=== PATIENT | male | born 1950 | race Caucasian/White ===

== ENCOUNTER → 2016-09-12 | Outpatient (CLI) | payer BC ==
[2016-09-12 10:20] LABS: Basophils % (A) 1 %; CH 31.9; CHCM 34.2; Eosinophils # (A) 0.3 k/uL (0-0.7); Eosinophils % (A) 5 %; HDW 2.54; HGB 14.7 gm/dL (13.0-17.5); Luc # (Auto) 0.19; Luc % (Auto) 4; Lymphocytes # (A) 1.2 k/uL (1.0-4.8); Lymphocytes % (A) 23 %; MCH 31.3 pg (25.0-35.0); MCHC 33.3 g/dL (31.0-37.0); MCV 93.8 fL (80.0-100.0); Mean Platelet Volume 7.7; Monocytes # (A) 0.5 k/uL (0-1.0); Monocytes % (A) 9 %; Neutrophils # (A) 3.1 k/uL (1.3-7.7); Neutrophils % (A) 59 %; RBC 4.69 m/uL (4.30-5.90); RDW 13.3 % (11.5-15.5); WBC 5.2 k/uL (3.8-10.6); WBC (Perox) 5.41
[2016-09-12 11:42] LABS: Calcium 9.5 mg/dL (8.4-10.2); Potassium 4.6 mmol/L (3.5-5.1); Total Bilirubin 1.2 mg/dL (0.2-1.3); Total Protein 6.9 g/dL (6.3-8.2)
[2016-09-12 12:09] LABS: Prostate Specific Antigen 2.01 ng/mL (0.00-4.00)
[2016-09-12 13:57] LABS: Hemoglobin A1C 5.8 % (4.2-6.1)
== END | disposition home or self-care (01) ==
LOC: LABWHC1 09:37
PROVIDERS: ATTEND Internal Medicine
DX: Z00.00 Encounter for general adult medical examination without abnormal findings (principal); I10 Essential (primary) hypertension; R73.01 Impaired fasting glucose; E78.2 Mixed hyperlipidemia; Z12.5 Encounter for screening for malignant neoplasm of prostate
CPT/HCPCS: 36415; 80053; 80061; 83036; 84153; 85025

== ENCOUNTER → 2019-01-19 | Outpatient (CLI) | payer BC ==
--- NOTE | 2019-01-19 10:46 | US ---
EXAMINATION TYPE: US venous doppler duplex LE RT DATE OF EXAM: 01/19/2019 10:40 AM COMPARISON: NONE CLINICAL HISTORY: M79.661Pain in right lower leg, R22.41 Swelling,. SIDE PERFORMED: TECHNIQUE: The lower extremity deep venous system is examined utilizing real time linear array sonog john with graded compression, doppler sonography and color-flow sonography. VESSELS IMAGED: External Iliac Vein (EIV) Common Femoral Vein Deep Femoral Vein Greater Saphenous Vein * Femoral Vein Popliteal Vein Small Saphenous Vein * Proximal Calf Veins (* superficial vessels) Right Leg: Negative for DVT IMPRESSION: 1. Right lower extremity ultrasound negative for deep venous thrombosis.
== END | disposition home or self-care (01) ==
LOC: RADUSWWP 10:15
PROVIDERS: ATTEND Internal Medicine
DX: I82.401 Acute embolism and thrombosis of unspecified deep veins of right lower extremity (principal); M79.661 Pain in right lower leg; R22.41 Localized swelling, mass and lump, right lower limb

== ENCOUNTER → 2020-05-26 | Outpatient (CLI) | payer BC ==
--- NOTE | 2020-05-26 14:58 | US ---
EXAMINATION TYPE: US kidneys/renal and bladder DATE OF EXAM: 05/26/2020 COMPARISON: NONE CLINICAL HISTORY: N18.4 chronic kidney disease; non diabetic EXAM MEASUREMENTS: Right Kidney: 10.3 x 5.9 x 5.9 cm Left Kidney: 11.3 x 5.4 x 5.5 cm Post Void Residual Volume: 6.3 mL Right Kidney: anechoic, thin, crescent shaped area noted extracapsular is sonographic "sweat sign" s uggestive of renal failure Left Kidney: Multiple renal cysts seen with lateral cystic cluster = 1.7 x 2.8 x 1.9cm and medial low er cortical cystic cluster = 3.4 x 3.1 x 2.8cm; anechoic, thin, crescent shaped area noted extracapsu lar is sonographic "sweat sign" suggestive of renal failure Bladder: wnl Bilateral Jets seen: yes Normal Post Void Residual: yes IMPRESSION: 1. Small amount of fluid adjacent to the kidney suggestive for renal failure. 2. Renal cysts left kidney
== END | disposition home or self-care (01) ==
LOC: RADUSWWP 13:15
PROVIDERS: ATTEND Internal Medicine
DX: N28.1 Cyst of kidney, acquired (principal)
CPT/HCPCS: 76770

== ENCOUNTER 2022-06-01 09:50 | Emergency (ER) | payer BC, MEDICARE ==
[2022-06-01 09:57] VITALS: RESP 18
--- NOTE | 2022-06-01 10:22 | ED ---
Skin/Abscess/FB HPI - General Chief complaint: Skin/Abscess/Foreign Body Stated complaint: poss cellulitis lt hand Time Seen by Provider: 06/01/22 10:04 Source: patient, RN notes reviewed Mode of arrival: ambulatory Limitations: no limitations - History of Present Illness Initial comments: Patient is a 72-year-old male presenting to the emergency room with complaints of sores to his first and second digits on his left hand that have been ongoing for approximately 1 month due to biting of his nails and fingertips along with blistering from yard work. He reports that approximately 2 days ago the fingertips became swollen and red and he began having purulent drainage from his index finger. This morning his coworker noticed a red streak coming from his index finger into his upper forearm. He reports that he went to urgent care earlier today who advised him to present to the emergency room. He denies any occluding any chest pain, shortness of breath, nausea, vomiting, headache, dizziness, fevers or chills. He denies any past medical history and does not take any medications on a regular basis. - Related Data Home Medications Medication Instructions Recorded Confirmed amLODIPine BESYLATE/BENAZEPRIL 1 cap PO DAILY 06/01/22 06/01/22 [Lotrel 5-10 mg Capsule] Previous Rx's Medication Instructions Recorded clindamycin HCL [Cleocin] 300 mg PO Q6HR 10 Days #40 cap 06/01/22 Allergies Allergy/AdvReac Type Severity Reaction Status Date / Time shellfish derived [Shellfish] Allergy Rash/Hives Verified 06/01/22 11:32 Review of Systems ROS Statement: Those systems with pertinent positive or pertinent negative responses have been documented in the HPI. ROS Other: All systems not noted in ROS Statement are negative. Past Medical History Past Medical History: No Reported History History of Any Multi-Drug Resistant Organisms: None Reported Past Surgical History: No Surgical Hx Reported Past Psychological History: No Psychological Hx Reported Smoking Status: Never smoker Past Alcohol Use History: None Reported Past Drug Use History: None Reported General Exam Limitations: no limitations General appearance: alert, in no apparent distress Head exam: Present: atraumatic, normocephalic, normal inspection Eye exam: Present: normal appearance, PERRL, EOMI. Absent: scleral icterus, conjunctival injection, periorbital swelling ENT exam: Present: normal exam, mucous membranes moist Neck exam: Present: normal inspection, full ROM Respiratory exam: Present: normal lung sounds bilaterally. Absent: respiratory distress, wheezes, rales, rhonchi, stridor Cardiovascular Exam: Present: regular rate, normal rhythm, normal heart sounds. Absent: systolic murmur, diastolic murmur, rubs, gallop, clicks GI/Abdominal exam: Present: soft. Absent: distended, tenderness Left Forearm Wrist exam: Present: swelling, erythema. Absent: tenderness over anatomical snuff box, pain with axial thumb loading Hand Wrist exam: Present: swelling, erythema, other (Multiple calluses with blister formation to index and middle finger of left hand with open blister to palmar aspect with small opening) Back exam: Present: normal inspection Neurological exam: Present: alert, oriented X3, CN II-XII intact Psychiatric exam: Present: normal affect, normal mood Skin exam: Present: other (as above) Course Vital Signs 06/01/22 06/01/22 09:53 12:20 Temperature 98 F 98.3 F Pulse Rate 78 72 Respiratory 18 18 Rate Blood Pressure 173/74 168/72 O2 Sat by Pulse 99 98 Oximetry Medical Decision Making - Medical Decision Making Was pt. sent in by a medical professional or institution (, PA, PLATE WORKER HELPER, urgent care, hospital, or correction...) When possible be specific @ -No Did you speak to anyone other than the patient for history (EMS, parent, family, police, friend...)? What history was obtained from this source @ -No Did you review nursing and triage notes (agree or disagree)? Why? @ -I reviewed and agree with nursing and triage notes except lesions to fingers have been present for approximately one month and swelling has been approximately 2 days Were old charts reviewed (outside hosp., previous admission, EMS record, old EKG, old radiological studies, urgent care reports/EKG's, correction records)? Report findings @ -No old charts were reviewed Differential Diagnosis (chest pain, altered mental status, abdominal pain women, abdominal pain men, vaginal bleeding, weakness, fever, dyspnea, syncope, headache, dizziness, GI bleed, back pain, seizure, CVA, palpatations, mental he alth, musculoskeletal)? @ -Differential Red Swollen hand: MRSA infection, cellulitis, and osteomyelitis, this is not meant to be an all- inclusive list. EKG interpreted by me (3pts min.). @ -None done X-rays interpreted by me (1pt min.). @ -X-ray left hand: CT interpreted by me (1pt min.). @ -None done U/S interpreted by me (1pt. min.). @ -None done What testing was considered but not performed or refused? (CT, X-rays, U/S, labs)? Why? @ -None What meds were considered but not given or refused? Why? @ -None Did you discuss the management of the patient with other professionals (professionals i.e. , PA, PLATE WORKER HELPER, lab, RT, psych nurse, social welfare research worker, certified appliance service technician, teacher, division officer weapons department, therapeutic case manager)? Give summary @ -No Was smoking cessation discussed for >3mins.? @ -No Was critical care preformed (if so, how long)? @ -No Were there social determinants of health that impacted care today? How? (Ho melessness, low income, unemployed, alcoholism, drug addiction, transportation, low edu. Level, literacy, decrease access to med. care, [facility], rehab)? @ -No Was there de-escalation of care discussed even if they declined (Discuss DNR or withdrawal of care, Hospice)? DNR status @ -No What co-morbidities impacted this encounter? (DM, HTN, Smoking, COPD, CAD, Cancer, CVA, ARF, Chemo, Hep., AIDS, mental health diagnosis, sleep apnea, morbid obesity)? @ -None Was patient admitted / discharged? Hospital course, mention meds given and route, prescriptions, significant lab abnormalities, going to OR and other pertinent info. @ -72-year-old male swelling and redness streaking from his index and second digit into his hand and up his forearm with blister and callus-like lesions to his index and middle finger. High concern for osteomyelitis in the setting of prolonged blisters will obtain x-ray of the left hand in addition to laboratory studies of CBC, CMP, blood cultures and lactic acid. CBC shows RBC low 4.23 no other abnormalities; WBC 9.3 with normal differential. CMP redemonstrates CK D stage III creatinine 1.73 BUN 32 carbon dioxide low at 21 ch loride potassium sodium and anion gap all normal bilirubin elevated 1.5 with normal a LC AST. Alkaline phosphatase slightly elevated at 129. Lactic acid normal 0.8. X-ray left hand demonstrates joint space narrowing without fracture, dislocation or obvious osseous destruction indicating osteomyelitis. Vital signs continued to remain stable. No indication for further diagnostic imaging or laboratory studies. Will give 1 dose of IV antibiotics now and discharge on oral antibiotic therapy. Cellulitis/phlebitis Strake marked for patient for monitoring Wound care discussed and encouraged keeping wounds clean and dry. Advised follow-up with primary care provider. Questions and concerns answered. S trict return parameters to the emergency room discussed. Will discharge home in stable condition on oral antibiotic therapy along with localized wound care for cellulitis of the left hand and phlebitis; advise follow-up with primary care provider. Undiagnosed new problem with uncertain prognosis? @ -No Drug Therapy requiring intensive monitoring for toxicity (Heparin, Nitro, Insulin, Cardizem)? @ -No Were any procedures done? @ -No Diagnosis/symptom? @ -Cellulitis left hand Acute, or Chronic, or Acute on Chronic? @ -Acute Uncomplicated (without systemic symptoms) or Complicated (systemic symptoms)? @ -Uncomplicated Side effects of treatment? @ -No Exacerbation, Progression, or Severe Exacerbation? @ -No Poses a threat to life or bodily function? How? (Chest pain, [place], [place], pneumonia, PE, COPD, DKA, ARF, appy, cholecystitis, CVA, Diverticulitis, Homicidal, Suicidal, threat to staff... and all critical care pts) @ -No Diagnosis/symptom? @ -Phlebitis left forearm Acute, or Chronic, or Acute on Chronic? @ -Acute Uncomplicated (without systemic symptoms) or Complicated (systemic symptoms)? @ -Uncomplicated Side effects of treatment? @ -none Exacerbation, Progression, or Severe Exacerbation] @ -no Poses a threat to life or bodily function? @ -no. Case discussed with Dr. Miller. - Lab Data Result diagrams: 06/01/22 10:11 06/01/22 10:11 Lab Results 06/01/22 06/01/22 06/01/22 Range/Units 09:50 10:11 10:11 WBC 9.3 (3.8-10.6) k/uL RBC 4.23 L (4.30-5.90) m/uL Hgb 13.3 (13.0-17.5) gm/dL Hct 39.2 (39.0-53.0) % MCV 92.8 (80.0-100.0) fL MCH 31.5 (25.0-35.0) pg MCHC 33.9 (31.0-37.0) g/dL RDW 12.6 (11.5-15.5) % Plt Count 211 (150-450) k/uL MPV 7.3 Neutrophils % 73 % Lymphocytes % 16 % Monocytes % 7 % Eosinophils % 3 % Basophils % 0 % Neutrophils # 6.8 (1.3-7.7) k/uL Lymphocytes # 1.5 (1.0-4.8) k/uL Monocytes # 0.6 (0-1.0) k/uL Eosinophils # 0.3 (0-0.7) k/uL Basophils # 0.0 (0-0.2) k/uL Sodium 140 (137-145) mmol/L Potassium 4.7 (3.5-5.1) mmol/L Chloride 107 (98-107) mmol/L Carbon Dioxide 21 L (22-30) mmol/L Anion Gap 12 mmol/L BUN 32 H (9-20) mg/dL Creatinine 1.73 H (0.66-1.25) mg/dL Est GFR (CKD-EPI)AfAm 45 (>60 ml/min/1.73 sqM) Est GFR (CKD-EPI)NonAf 39 (>60 ml/min/1.73 sqM) Glucose 135 H (74-99) mg/dL Plasma Lactic Acid Reddy 0.8 (0.7-2.0) mmol/L Calcium 9.2 (8.4-10.2) mg/dL Total Bilirubin 1.5 H (0.2-1.3) mg/dL AST 26 (17-59) U/L ALT 21 (4-49) U/L Alkaline Phosphatase 129 H (38-126) U/L Total Protein 7.4 (6.3-8.2) g/dL Albumin 4.1 (3.5-5.0) g/dL Disposition Clinical Impression: Cellulitis, Phlebitis of arm Disposition: HOME SELF-CARE Condition: Stable Instructions (If sedation given, give patient instructions): Cellulitis (ED), Phlebitis (ED) Additional Instructions: Keep hand wounds clean and dry. Complete course of antibiotic as prescribed. Utilize Tylenol as needed [id number] for pain or fevers. Please follow-up with your primary care provider. Please return to the Emergency Department if symptoms worsen or any other concerns. Prescriptions: clindamycin HCL [Cleocin] 300 mg PO Q6HR 10 Days #40 cap Is patient prescribed a controlled substance at d/c from ED?: No Referrals: Isaiah Luna MD [Primary Care Provider] - 1-2 days Time of Disposition: 11:34
[2022-06-01 10:24] LABS: Basophils % (A) 0 %; Eosinophils # (A) 0.3 k/uL (0-0.7); Eosinophils % (A) 3 %; HCT 39.2 % (39.0-53.0); HGB 13.3 gm/dL (13.0-17.5); Lymphocytes # (A) 1.5 k/uL (1.0-4.8); Lymphocytes % (A) 16 %; MCH 31.5 pg (25.0-35.0); MCHC 33.9 g/dL (31.0-37.0); MCV 92.8 fL (80.0-100.0); Mean Platelet Volume 7.3; Monocytes # (A) 0.6 k/uL (0-1.0); Monocytes % (A) 7 %; Neutrophils # (A) 6.8 k/uL (1.3-7.7); Neutrophils % (A) 73 %; Platelet Count 211 k/uL (150-450); RBC 4.23 m/uL (4.30-5.90); RDW 12.6 % (11.5-15.5); WBC 9.3 k/uL (3.8-10.6)
--- NOTE | 2022-06-01 10:26 | XR ---
EXAMINATION TYPE: XR hand complete LT DATE OF EXAM: 06/01/2022 CLINICAL HISTORY: Swelling. TECHNIQUE: Frontal, lateral and oblique images of the left hand are obtained. COMPARISON: None. FINDINGS: Evaluation is suboptimal due to incomplete extension of the phalanges. There is no acute fr acture/dislocation evident in the left hand. [id number] narrowing and spurring throughout the P IP and DIP joints of the phalanges. Relative sparing of the MCP joints. Moderate to severe narrowing and spurring at the base of the first metacarpal. Mild to moderate diffuse soft tissue swelling great est involving the second finger. No obvious suspicious bony destruction. IMPRESSION: As above.
[2022-06-01 10:36] LABS: Albumin 4.1 g/dL (3.5-5.0); Calcium 9.2 mg/dL (8.4-10.2); Potassium 4.7 mmol/L (3.5-5.1); Total Bilirubin 1.5 mg/dL (0.2-1.3); Total Protein 7.4 g/dL (6.3-8.2)
[2022-06-01] MEDS ORDERED: CLINDAMYCIN 150 MG/ML 4 ML VIAL IM STA (11:27)
[2022-06-01] MEDS ORDERED: CLINDAMYCIN 600 MG in DEXTROSE 5% IN WATER 50 ML IVPB STA ×2 (11:38)
[2022-06-01 12:24] VITALS: BP 168/72; PULSE 72; TEMP 98.3
== END 2022-06-01 12:20 | disposition home or self-care (01) ==
LOC: EC 09:50
DX: I80.8 Phlebitis and thrombophlebitis of other sites (principal)
CPT/HCPCS: 36415; 80053; 83605; 85025; 96365; 99283

== ENCOUNTER → 2023-03-19 | Outpatient (CLI) | payer BC ==
--- NOTE | 2023-03-19 16:50 | US ---
EXAMINATION TYPE: US venous doppler duplex LE DATE OF EXAM: 03/19/2023 4:22 PM COMPARISON: Prev right leg onlyh CLINICAL INDICATION: Male, 72 years old with history of R60.0 LOCALIZED EDEMA BLE; Leg swelling and r edness, more on right leg SIDE PERFORMED: Bilateral TECHNIQUE: The lower extremity deep venous system is examined utilizing real time linear array sonog john with graded compression, doppler sonography and color-flow sonography. 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 Mcdowell at time of exam IMPRESSION: Grayscale, color doppler, spectral doppler imaging performed of the deep veins of the lo wer extremities. There is normal flow, compressibility, vascular waveforms.
== END | disposition home or self-care (01) ==
LOC: RADUSWWP 15:57
PROVIDERS: ATTEND Internal Medicine
DX: R60.0 Localized edema (principal); M79.89 Other specified soft tissue disorders
CPT/HCPCS: 93970

== ENCOUNTER 2023-10-17 09:21 | Inpatient (IN) | payer BC, MEDICARE ==
--- NOTE | 2023-10-17 10:36 | ED ---
General Adult HPI - General Chief complaint: Recheck/Abnormal Lab/Rx Stated complaint: high potassium levels Time Seen by Provider: 10/17/23 09:40 Source: patient Mode of arrival: ambulatory Limitations: no limitations - History of Present Illness Initial comments: 73 [id number] presents the emergency department with complaint of abnormal labs from primary care visit yesterday, reports some mild muscle cramping to right upper thigh, denies other symptoms. Patient states that he believes it was his potassium. Patient denies any chest pain shortness of breath any palpitations denies any headache or dizziness no recent nausea vomiting - Related Data Home Medications Medication Instructions Recorded Confirmed amLODIPine BESYLATE/BENAZEPRIL 1 cap PO DAILY 06/01/22 06/01/22 [Lotrel 5-10 mg Capsule] Previous Rx's Medication Instructions Recorded clindamycin HCL [Cleocin] 300 mg PO Q6HR 10 Days #40 cap 06/01/22 Allergies Allergy/AdvReac Type Severity Reaction Status Date / Time shellfish derived [Shellfish] Allergy Rash/Hives Verified 10/17/23 11:45 Review of Systems ROS Statement: Those systems with pertinent positive or pertinent negative responses have been documented in the HPI. ROS Other: All systems not noted in ROS Statement are negative. Musculoskeletal: Reports: myalgia (Right upper thigh), other Past Medical History Past Medical History: Hypertension History of Any Multi-Drug Resistant Organisms: None Reported Past Surgical History: No Surgical Hx Reported Past Psychological History: No Psychological Hx Reported Smoking Status: Never smoker Past Alcohol Use History: None Reported Past Drug Use History: None Reported General Exam Limitations: no limitations General appearance: alert, in no apparent distress Head exam: Present: atraumatic, normocephalic, normal inspection Eye exam: Present: normal appearance, PERRL, EOMI. Absent: scleral icterus, conjunctival injection, periorbital swelling ENT exam: Present: normal exam, mucous membranes moist Neck exam: Present: normal inspection. Absent: tenderness, meningismus, lymphadenopathy Respiratory exam: Present: normal lung sounds bilaterally. Absent: respiratory distress, wheezes, rales, rhonchi, stridor Cardiovascular Exam: Present: regular rate, normal rhythm, normal heart sounds. Absent: systolic murmur, diastolic murmur, rubs, gallop, clicks GI/Abdominal exam: Present: soft, normal bowel sounds. Absent: distended, te nderness, guarding, rebound, rigid Extremities exam: Present: normal inspection, full ROM, normal capillary refill. Absent: tenderness, pedal edema, joint swelling, calf tenderness Back exam: Present: normal inspection Neurological exam: Present: alert, oriented X3, CN II-XII intact Psychiatric exam: Present: normal affect, normal mood Skin exam: Present: warm, dry, intact, normal color. Absent: rash Course Vital Signs 10/17/23 10/17/23 09:43 10:06 Temperature 99.1 F Pulse Rate 98 Pulse Rate [ 88 Radial] Respiratory 16 Rate Blood Pressure 146/68 O2 Sat by Pulse 99 Oximetry EKG Findings - EKG Comments: EKG Findings:: EKG performed at 11: 26 sinus rhythm rate of 71 IA 171 QRS 96 QT/QTc 356/[address] elevation depression noted. - EKG Results: EKG: interpreted by JEANINE Medical Decision Making - Medical Decision Making Was pt. sent in by a medical professional or institution (, PA, HUMAN CAPITAL MANAGER, urgent care, hospital, or half-way...) When possible be specific @ -No Did you speak to anyone other than the patient for history (EMS, parent, family, police, friend...)? What history was obtained from this source @ -No Did you review nursing and triage notes (agree or disagree)? Why? @ -I reviewed and agree with nursing and triage notes Were old charts reviewed (outside hosp., previous admission, EMS record, old EKG, old radiological studies, urgent care reports/EKG's, half-way records)? Report findings @ -No old charts were reviewed Differential Diagnosis (chest pain, altered mental status, abdominal pain women, abdominal pain men, vaginal bleeding, weakness, fever, dyspnea, syncope, headache, dizziness, GI bleed, back pain, seizure, CVA, palpatations, mental health, musculoskeletal)? @ -Hyperkalemia, dehydration, acute renal failure, hypomagnesemia EKG interpreted by me (3pts min.). @ -As above X-rays interpreted by me (1pt min.). @ -None done CT interpreted by me (1pt min.). @ -None done U/S interpreted by me (1pt. min.). @ -None done What testing was considered but not performed or refused? (CT, X-rays, U/S, labs)? Why? @ -None What meds were considered but not given or refused? Why? @ -None Did you discuss the management of the patient with other professionals (professionals i.e. , PA, HUMAN CAPITAL MANAGER, lab, RT, psych nurse, social work professor, legal assistant, teacher, head correction officer, social work case manager)? Give summary @ -Sound physician for admission Was smoking cessation discussed for >3mins.? @ -No Was critical care preformed (if so, how long)? @ -35 minutes of critical care Were there social determinants of health that impacted care today? How? (Homelessness, low income, unemployed, alcoholism, drug addiction, transpor tation, low edu. Level, literacy, decrease access to med. care, detention, rehab)? @ -No Was there de-escalation of care discussed even if they declined (Discuss DNR or withdrawal of care, Hospice)? DNR status @ -No What co-morbidities impacted this encounter? (DM, HTN, Smoking, COPD, CAD, Cancer, CVA, ARF, Chemo, Hep., AIDS, mental health diagnosis, sleep apnea, morbid obesity)? @ -Chronic failure Was patient admitted / discharged? Hospital course, mention meds given and route, prescriptions, significant lab abnormalities, going to OR and other pertinent info. @ -Admitted patient is found to have potassium of 7.3, patient's potassium was 7.7 yesterday. Patient was ordered calcium gluconate, bicarb, Lokelma, insulin and dextrose. Patient will have repeat laboratory studies. Patient does have acute on chronic renal failure. Patient will be admitted for repeat labs and observation. Undiagnosed new problem with uncertain prognosis? @ -No Drug Therapy requiring intensive monitoring for toxicity (Heparin, Nitro, Insulin, Cardizem)? @ -No Were any procedures done? @ -No Diagnosis/symptom? @ -[Acute chronic renal failure, hyperkalemia Acute, or Chronic, or Acute on Chronic? @ -Acute Uncomplicated (without systemic symptoms) or Complicated (systemic symptoms)? @ -Complicated Side effects of treatment? @ -No Exacerbation, Progression, or Severe Exacerbation? @ -No Poses a threat to life or bodily function? How? (Chest pain, [place], [place], pneumonia, PE, COPD, DKA, ARF, appy, cholecystitis, CVA, Diverticulitis, Homicidal, Suicidal, threat to staff... and all critical care pts) @ -Yes cardiac dysrhythmia leading to cardiac arrest - Lab Data Result diagrams: 10/17/23 10:50 10/17/23 10:50 Lab Results 10/17/23 10/17/23 Range/Units 10:50 10:50 WBC 6.7 (3.8-10.6) k/uL RBC 4.05 L (4.30-5.90) m/uL Hgb 13.0 (13.0-17.5) gm/dL Hct 40.0 (39.0-53.0) % MCV 98.9 (80.0-100.0) fL MCH 32.2 (25.0-35.0) pg MCHC 32.5 (31.0-37.0) g/dL RDW 13.2 (11.5-15.5) % Plt Count 256 (150-450) k/uL MPV 7.4 Neutrophils % 67 % Lymphocytes % 19 % Monocytes % 7 % Eosinophils % 4 % Basophils % 0 % Neutrophils # 4.5 (1.3-7.7) k/uL Lymphocytes # 1.3 (1.0-4.8) k/uL Monocytes # 0.5 (0-1.0) k/uL Eosinophils # 0.3 (0-0.7) k/uL Basophils # 0.0 (0-0.2) k/uL Sodium 135 L (137-145) mmol/L Potassium 7.3 H* (3.5-5.1) mmol/L Chloride 111 H (98-107) mmol/L Carbon Dioxide 15 L (22-30) mmol/L Anion Gap 9 mmol/L BUN 50 H (9-20) mg/dL Creatinine 2.96 H (0.66-1.25) mg/dL Est GFR (CKD-EPI)AfAm 23 (>60 ml/min/1.73 sqM) Est GFR (CKD-EPI)NonAf 20 (>60 ml/min/1.73 sqM) Glucose 103 H (74-99) mg/dL Calcium 9.8 (8.4-10.2) mg/dL Magnesium 1.7 (1.6-2.3) mg/dL Total Bilirubin 0.8 (0.2-1.3) mg/dL AST 27 (17-59) U/L ALT 21 (4-49) U/L Alkaline Phosphatase 110 (38-126) U/L Total Protein 7.7 (6.3-8.2) g/dL Albumin 4.4 (3.5-5.0) g/dL Critical Care Time Critical Care Time: Yes Total Critical Care Time: 35 Disposition Clinical Impression: Acute kidney injury, Hyperkalemia Disposition: [facility] Condition: Poor Referrals: Isaiah Luna DO [Primary Care Provider] - 1-2 days Time of Disposition: 11:48
[2023-10-17 11:01] LABS: Basophils % (A) 0 %; Eosinophils # (A) 0.3 k/uL (0-0.7); Eosinophils % (A) 4 %; Lymphocytes # (A) 1.3 k/uL (1.0-4.8); Lymphocytes % (A) 19 %; MCH 32.2 pg (25.0-35.0); MCHC 32.5 g/dL (31.0-37.0); MCV 98.9 fL (80.0-100.0); Mean Platelet Volume 7.4; Monocytes # (A) 0.5 k/uL (0-1.0); Monocytes % (A) 7 %; Neutrophils # (A) 4.5 k/uL (1.3-7.7); Neutrophils % (A) 67 %; Platelet Count 256 k/uL (150-450); RBC 4.05 m/uL (4.30-5.90); RDW 13.2 % (11.5-15.5); WBC 6.7 k/uL (3.8-10.6)
[2023-10-17 11:18] LABS: ALT 21 U/L (4-49); AST 27 U/L (17-59); African American GFR (CKD) 23 (>60 ml/min/1.73 sqM); Albumin 4.4 g/dL (3.5-5.0); Alkaline Phosphatase 110 U/L (38-126); Anion Gap 9 mmol/L; Blood Urea Nitrogen 50 mg/dL (9-20); Calcium 9.8 mg/dL (8.4-10.2); Carbon Dioxide 15 mmol/L (22-30); Chloride 111 mmol/L (98-107); Glucose 103 mg/dL (74-99); Magnesium 1.7 mg/dL (1.6-2.3); Non-African American GFR(CKD) 20 (>60 ml/min/1.73 sqM); Sodium 135 mmol/L (137-145); Total Bilirubin 0.8 mg/dL (0.2-1.3); Total Protein 7.7 g/dL (6.3-8.2)
[2023-10-17 11:32] LABS: Potassium 7.3 mmol/L (3.5-5.1)
[2023-10-17] MEDS: CALCIUM GLUCONATE IN NACL 1 GM in SALINE 1 100ML.BAG IVPB ONE ×2 (11:52→17:19)
[2023-10-17] MEDS: SODIUM CHLORIDE 0.9% 1,000 ML IV ONE (11:52)
[2023-10-17] MEDS: DEXTROSE 50% SYRINGE 50 ML IVP ONE ×2 (11:54→17:21)
[2023-10-17] MEDS: SODIUM BICARB 8.4% 50 ML SYR (1 MEQ/ML) IV ONE (11:54)
[2023-10-17] MEDS ORDERED: NALOXONE 0.4 MG/ML 1 ML VIAL IV PRN (11:54)
[2023-10-17] MEDS ORDERED: ACETAMINOPHEN TAB 325 MG TAB PO PRN (11:54)
[2023-10-17] MEDS: SODIUM ZIRCONIUM CYCLOSILICATE 10 GM PACKET PO ONE (11:55)
[2023-10-17] MEDS: INSULIN REGULAR 100 UNIT/ML VIAL (IV) IV ONE ×2 (12:00→17:34)
--- NOTE | 2023-10-17 12:19 | P.HPIM ---
History of Present Illness H&P Date: 10/17/23 History of Presenting Illness: Patient is a very pleasant 73-year-old male with a past medical history of hypertension and CKD stage IIIb. He presented to the emergency department as directed by his PCP for reports of hyperkalemia. Patient reports he was evaluated by his primary care physician for reports of leg muscle cramping in his right upper thigh and continued treatment of osteomyelitis of left hand middle finger, patient reports he completed antibiotic clindamycin and was started on oral antibiotic with Bactrim and had some routine lab work completed. Patient reports he received a call yesterday evening that he needed to come to the emergency department because his potassium was 7.7. Patient denies having any complaints including headache, lightheadedness, dizziness, chest pain, palpitations, shortness of breath, abdominal pain, nausea, vomiting, flank pain, changes in or difficulties with urinary function, or experiencing any swelling in his lower extremities. Patient states he has been told his kidney function was not good in the past, but denies ever being evaluated by a blending supervisor. Patient states he does not understand why his potassium is so high because he feels fine. Upon arrival to our facility, patient underwent evaluation in the emergency department. Vital signs upon arrival show blood pressure 146/68, heart rate 98, respiratory rate 16, temp 99.1 F, and SpO2 of 99% on room air. The revealing normal sinus rhythm at 71 bpm with mildly peaked T waves upon personal review and interpretation. Labs were completed and reviewed. CBC unremarkable. BMP showing potassium 7.3, chloride 111, bicarb 15, anion gap 9, BUN 50, creatinine 2.96, and GFR of 20 (with baseline creatinine of 1.8) blood glucose 103. Magnesium 1.7. Liver profile unremarkable. Patient received hyperkalemia cocktail in the emergency department and admitted under our services with consultation to nephrology. Review of systems: Pertinent positives and negatives as discussed in HPI, a complete review of systems was performed and all other systems are negative. Physical exam: Vital signs reviewed and stable. General: Nontoxic, no distress and appears stated age. Derm: Skin warm and dry, normal coloration for ethnicity. Head: Atraumatic, normocephalic and symmetric. Eyes: EOM's intact, no lid lag, and anicteric sclera Mouth: no lip lesions, mucus membranes moist Cardiovascular: regular rate and rhythm with normal S1S2, no murmur, positive posterior tibial pulses bilaterally, and cap refill < 2 seconds. Lungs: Respirations even, regular, and unlabored on room air. Lungs CTA bilaterally, no rhonchi, no rales, no wheezing, and no accessory muscle usage. Abdominal: soft, nontender to palpation, no guarding, no appreciable organo megaly Ext: ROM intact. No gross muscle atrophy, 1+ lower extremity edema, no contractures Neuro: Speech clear, face symmetrical and CN II-XII grossly intact with no noted focal neuro deficits Psych: Alert and oriented to person, place, time, and situation. Appropriate and pleasant affect. Assessment and Plan of Care: Hyperkalemia Acute kidney injury on CKD stage IIIb Anion gap metabolic acidosis -Patient received hyperkalemia cocktail in the emergency department consisting of IV fluid bolus, Lokelma, sodium bicarb, regular insulin with dextrose, and calcium gluconate. -EKG showing normal sinus rhythm at 71 bpm with mildly peaked T waves upon personal review and interpretation. -Hold nephrotoxic medications including Bactrim, Lasix, and Lotrel. -Consult placed to nephrology and discussed case with blending supervisor Dr. Holman. -Patient placed on continuous telemetry monitoring. -Continue gentle IV fluid hydration with 0.9% normal saline. -Repeat potassium to be drawn at 3 PM and further orders pending these results. -Order placed for stat renal ultrasound and urinalysis. -Patient placed on strict I's and O's. Hypertension -Hold Lotrel secondary to hyperkalemia and acute kidney injury and patient to continue with carvedilol 20 mg daily amlodipine 5 mg daily. Currently blood pressure stable 146/68. Previously diagnosed osteomyelitis of left hand middle finger -Patient reports completing course of clindamycin and recently started on Bactrim by PCP. -We will discontinue Bactrim at this time secondary to VIKA and hyperkalemia and place patient on doxycycline. Will consult infectious disease for further managemen/ recommendations of antibiotics. Data and imaging reviewed: As stated above in HPI The patient is admitted with an anticipated greater than 2 midnight stay for evaluation of hyperkalemia and acute kidney injury on chronic kidney disease. CODE STATUS: Full code DVT prophylaxis: Heparin Anticipated discharge date: Pending clinical course Anticipated discharge place: Home Patient was seen independently by Nurse Practitioner. This document was prepared using Dragon dictation software. Please allow for errors in eggs inspector while rare they do occur. . Bayron Cox NP rendered care for this patient independently, reviewed the findings and plan as documented in the note above. I did not physically speak with or examine the patient on this date. Past Medical History Past Medical History: Hypertension History of Any Multi-Drug Resistant Organisms: None Reported Past Surgical History: No Surgical Hx Reported Past Psychological History: No Psychological Hx Reported Smoking Status: Never smoker Past Alcohol Use History: None Reported Past Drug Use History: None Reported Medications and Allergies Home Medications Medication Instructions Recorded Confirmed Type amLODIPine BESYLATE/BENAZEPRIL 1 cap PO DAILY 06/01/22 10/17/23 History [Lotrel 5-10 mg Capsule] ALPRAZolam [Xanax] 0.25 mg PO DAILY PRN 10/17/23 10/17/23 History Baclofen 10 mg PO TID PRN 10/17/23 10/17/23 History Escitalopram [Lexapro] 10 mg PO DAILY 10/17/23 10/17/23 History Furosemide [Lasix] 20 mg PO DAILY 10/17/23 10/17/23 History Mupirocin 2% Oint [Bactroban 2% 1 applic TOPICAL TID 10/17/23 10/17/23 History Oint] Ondansetron [Zofran] 4 mg PO Q8HR PRN 10/17/23 10/17/23 History Sulfamethox-Tmp 800-160Mg [Bactrim 1 tab PO Q12HR 10/17/23 10/17/23 History DS 800-160 mg] allopurinoL [Zyloprim] 100 mg PO DAILY 10/17/23 10/17/23 History carvediloL phosphate [carvediloL 20 mg PO DAILY 10/17/23 10/17/23 History phosphate ER] cloNIDine HCL [Catapres] 0.1 mg PO DAILY PRN 10/17/23 10/17/23 History traZODone HCL [Desyrel] 50 mg PO HS 10/17/23 10/17/23 History Allergies Allergy/AdvReac Type Severity Reaction Status Date / Time shellfish derived [Shellfish] Allergy Rash/Hives Verified 10/17/23 11:45 Physical Exam Vitals: Vital Signs Temp Pulse Pulse Resp BP Pulse Ox 10/17/23 10:06 88 10/17/23 09:43 99.1 F 98 16 146/68 99 Intake and Output 10/16/23 10/17/23 10/17/23 22:59 06:59 14:59 Other: Weight 109.769 kg Results CBC & Chem 7: 10/17/23 10:50 10/17/23 10:50 Labs: Abnormal Lab Results - Last 24 Hours (Table) 10/17/23 10/17/23 Range/Units 10:50 10:50 RBC 4.05 L (4.30-5.90) m/uL Sodium 135 L (137-145) mmol/L Potassium 7.3 H* (3.5-5.1) mmol/L Chloride 111 H (98-107) mmol/L Carbon Dioxide 15 L (22-30) mmol/L BUN 50 H (9-20) mg/dL Creatinine 2.96 H (0.66-1.25) mg/dL Glucose 103 H (74-99) mg/dL
[2023-10-17] MEDS: DOXYCYCLINE 100 MG CAP PO SCH (13:39)
[2023-10-17] MEDS: SODIUM CHLORIDE 0.9% 1,000 ML IV SCH (13:40)
--- NOTE | 2023-10-17 14:18 | P.NPCON ---
History of Present Illness - Reason for Consult acute renal failure - History of Present Illness Patient is a 73-year-old male with history of hypertension was admitted to the hospital due to abnormal labs. Labs done as outpatient showed serum potassium at 8. Patient admits to chronic lower extremity swelling. Patient is maintained on RANJIT inhibitor's for hypertension. History of recent left middle finger cellulitis for which patient has been on Bactrim and clindamycin. No history of use of NSAIDs either. Patient denies any urinary symptoms. Blood pressure is not low. Patient does have history of chronic kidney disease but does not follow with nephrology. Baseline creatinine appears to be around 1.8-1.7 mg/dL for most of 2022 and it was 2.0 on 04/02/2023 Review of Systems as per HPI Past Medical History Past Medical History: Hypertension History of Any Multi-Drug Resistant Organisms: None Reported Past Surgical History: No Surgical Hx Reported Past Psychological History: No Psychological Hx Reported Smoking Status: Never smoker Past Alcohol Use History: None Reported Past Drug Use History: None Reported Medications and Allergies Home Medications Medication Instructions Recorded Confirmed Type amLODIPine BESYLATE/BENAZEPRIL 1 cap PO DAILY 06/01/22 10/17/23 History [Lotrel 5-10 mg Capsule] ALPRAZolam [Xanax] 0.25 mg PO DAILY PRN 10/17/23 10/17/23 History Baclofen 10 mg PO TID PRN 10/17/23 10/17/23 History Escitalopram [Lexapro] 10 mg PO DAILY 10/17/23 10/17/23 History Furosemide [Lasix] 20 mg PO DAILY 10/17/23 10/17/23 History Mupirocin 2% Oint [Bactroban 2% 1 applic TOPICAL TID 10/17/23 10/17/23 History Oint] Ondansetron [Zofran] 4 mg PO Q8HR PRN 10/17/23 10/17/23 History Sulfamethox-Tmp 800-160Mg [Bactrim 1 tab PO Q12HR 10/17/23 10/17/23 History DS 800-160 mg] allopurinoL [Zyloprim] 100 mg PO DAILY 10/17/23 10/17/23 History carvediloL phosphate [carvediloL 20 mg PO DAILY 10/17/23 10/17/23 History phosphate ER] cloNIDine HCL [Catapres] 0.1 mg PO DAILY PRN 10/17/23 10/17/23 History traZODone HCL [Desyrel] 50 mg PO HS 10/17/23 10/17/23 History Allergies Allergy/AdvReac Type Severity Reaction Status Date / Time shellfish derived [Shellfish] Allergy Rash/Hives Verified 10/17/23 11:45 Physical Exam Vitals: Vital Signs Temp Pulse Pulse Resp BP Pulse Ox 10/17/23 13:24 97.1 F L 70 16 133/74 100 10/17/23 10:06 88 10/17/23 09:43 99.1 F 98 16 146/68 99 Intake and Output 10/16/23 10/17/23 10/17/23 22:59 06:59 14:59 Other: Weight 109.769 kg patient is awake, comfortable, no acute distress. Alert oriented 3 Examination of the heart S1 and S2 Examination of the lungs bilateral breath sounds are heard Abdomen is soft nontender Examination of lower extremities shows edema 1+ bilaterally DRUM PRINTER exam grossly intact Results - Lab Results Most recent lab results Calcium 9.8 mg/dL (8.4-10.2) 10/17/23 10:50 Magnesium 1.7 mg/dL (1.6-2.3) 10/17/23 10:50 10/17/23 10:50 10/17/23 10:50 Assessment and Plan Assessment: 1. Acute kidney injury , possibly ATN, rule out obstructive uropathy. Check UA and check ultrasound of the kidneys. Ranijt inhibitors will be held. 2. Volume overload 3. Hypertension maintained on clonidine, Coreg and RANJIT inhibitor's. Lotrel on hold 4. Hyperkalemia associated with use of Bactrim as well as acute kidney injury and Ranjit inhibitors. Rule out obstructive uropathy Plan: decrease IV fluids Hold Bactrim May continue with doxycycline. Check urine eosinophils Check ultrasound of the kidneys Check UA IV Lasix 1 Repeat labs this evening. Thank you for the consultation. We will continue to follow the patient with you during his hospitalization.
--- NOTE | 2023-10-17 14:24 | US ---
EXAMINATION TYPE: US kidneys/renal and bladder DATE OF EXAM: 10/17/2023 COMPARISON: 05/26/20 CLINICAL INDICATION: Male, 73 years old with history of duc on ckd; duc EXAM MEASUREMENTS: Right Kidney: 10.1 x 4.4 x 5.1 cm Left Kidney: 9.8 x 4.5 x 5.6 cm Right Kidney: No obstructive uropathy or mass. Cortical medullary differentiation maintained Left Kidney: No obstructive uropathy or mass. Cortical medullary differentiation maintained. Cyst see n laterally measuring 2.8 x 2.7 x 3.1cm Bladder: wnl, prostate seen adjacent to bladder Bilateral Jets seen: No There is no evidence for hydronephrosis at this point in time. No nephrolithiasis is seen. No gualberto s are identified. The urinary bladder is anechoic. Bilateral ureteral jets are seen. IMPRESSION: 1. No evidence for obstructive uropathy. 2. Left renal cyst. 3. Prominent prostate gland correlate PSA.
[2023-10-17] MEDS ORDERED: HYDROcodone/APAP 5-325MG 1 EACH TAB PO PRN (15:18)
[2023-10-17] MEDS: FUROSEMIDE 10 MG/ML 4 ML VIAL IV STA (15:21)
[2023-10-17] MEDS ORDERED: cloNIDine HCL 0.1 MG TAB PO PRN (15:56)
[2023-10-17] MEDS ORDERED: ALPRAZolam 0.25 MG TAB PO PRN (15:56)
[2023-10-17 16:44] LABS: Appearance,Urine Clear (Clear); Bilirubin,Urine Negative (Negative); Blood,Urine Negative (Negative); Color,Urine Colorless; Glucose,Urine (UA) Negative (Negative); Ketones,Urine Negative (Negative); Leukocyte Esterase,Urine Negative (Negative); Nitrite,Urine Negative (Negative); Protein,Urine Negative (Negative); Specific Gravity,Urine 1.007 (1.001-1.035); Urobilinogen,Urine <2.0 mg/dL (<2.0)
[2023-10-17] MEDS ORDERED: INSULIN REGULAR 100 UNIT/ML VIAL (IV) IV ONE (17:02)
[2023-10-17] MEDS: FUROSEMIDE 10 MG/ML 10 ML VIAL IV STA (17:23)
[2023-10-17] MEDS: traZODone HCL 50 MG TAB PO SCH (20:19)
--- NOTE | 2023-10-17 21:20 | P.CONS ---
History of Present Illness - Reason for Consult Consult date: 10/17/23 Osteomyelitis left hand Requesting physician: Bayron Cox - Chief Complaint Abnormal lab x 1 day - History of Present Illness Patient is a 73-year-old male with a past medical history significant for hypertension chronic kidney disease stage IIIb has been sent to the ER by the PCP as the patient was noticed to have elevated potassium level apparently patient did have a left middle finger infection that has been treated in the outpatient setting by his hand specialist he is not sure about the name but mention it is involvement and initially was supposed to get amputation of the distal phalanx subsequently was told they may be able to urinate with antibiotic has been a course of clindamycin subsequent has been started on Bactrim DS with a follow-up blood work today shows a potassium of 7.7. Patient was advised to go to the hospital patient denies having any fever or any chills denies any headache no chest pain shortness of breath or cough no nausea vomiting no abdominal pain or diarrhea patient mention he did have a habit of biting on his nailbed because of anxiety and thought that may have started the infection to the tip of his left middle finger patient mention if you push hard on 8 he can get some pus out did have mild dull aching pain without any radiation on presentation to the hospital the patient was afebrile and no fever have recorded subsequently patient was not hypotensive hypoxic patient did have white count of 6.7 creatinine is 2.96 potassium 7.3 urine has been negative patient did have abdominal bladder ultrasound no evidence for obstructive uropathy left renal cyst patient was started on oral doxycycline infectious he was consulted for further management of his left middle fingertip infection Review of Systems Positive point and negatives has been mentioned in the HPI, complete review of systems was performed and all other systems are negative Past Medical History Past Medical History: Hypertension History of Any Multi-Drug Resistant Organisms: None Reported Past Surgical History: No Surgical Hx Reported Past Psychological History: No Psychological Hx Reported Smoking Status: Never smoker Past Alcohol Use History: None Reported Past Drug Use History: None Reported Medications and Allergies Home Medications Medication Instructions Recorded Confirmed Type amLODIPine BESYLATE/BENAZEPRIL 1 cap PO DAILY 06/01/22 10/17/23 History [Lotrel 5-10 mg Capsule] ALPRAZolam [Xanax] 0.25 mg PO DAILY PRN 10/17/23 10/17/23 History Baclofen 10 mg PO TID PRN 10/17/23 10/17/23 History Escitalopram [Lexapro] 10 mg PO DAILY 10/17/23 10/17/23 History Furosemide [Lasix] 20 mg PO DAILY 10/17/23 10/17/23 History Mupirocin 2% Oint [Bactroban 2% 1 applic TOPICAL TID 10/17/23 10/17/23 History Oint] Ondansetron [Zofran] 4 mg PO Q8HR PRN 10/17/23 10/17/23 History Sulfamethox-Tmp 800-160Mg [Bactrim 1 tab PO Q12HR 10/17/23 10/17/23 History DS 800-160 mg] allopurinoL [Zyloprim] 100 mg PO DAILY 10/17/23 10/17/23 History carvediloL phosphate [carvediloL 20 mg PO DAILY 10/17/23 10/17/23 History phosphate ER] cloNIDine HCL [Catapres] 0.1 mg PO DAILY PRN 10/17/23 10/17/23 History traZODone HCL [Desyrel] 50 mg PO HS 10/17/23 10/17/23 History Allergies Allergy/AdvReac Type Severity Reaction Status Date / Time shellfish derived [Shellfish] Allergy Rash/Hives Verified 10/17/23 11:45 Physical Exam Vitals: Vital Signs Temp Pulse Pulse Resp BP Pulse Ox 10/17/23 13:24 97.1 F L 70 16 133/74 100 10/17/23 10:06 88 10/17/23 09:43 99.1 F 98 16 146/68 99 Intake and Output 10/17/23 10/17/23 10/17/23 06:59 14:59 22:59 Other: Weight 109.769 kg GENERAL DESCRIPTION: Elderly male lying in bed, no distress. No tachypnea or accessory muscle of respiration use. HEENT: Shows Pallor , no scleral icterus. Oral mucous membrane is dry. No pharyngeal erythema or thrush NECK: Trachea central, no thyromegaly. LUNGS: Unlabored breathing. Clear to auscultation anteriorly. No wheeze or crackle. HEART: S1, S2, regular rate and rhythm. No loud murmur ABDOMEN: Soft, no tenderness , guarding or rigidity, no organomegaly EXTREMITIES: Left middle finger DIP is slightly swollen he did have a wound that is scabbed off with no drainage was noticed SKIN: No rash, no masses palpable. NEUROLOGICAL: The patient is awake, alert, oriented x3, mood and affect normal. Results CBC & Chem 7: 10/17/23 10:50 10/17/23 20:20 Labs: Abnormal Lab Results - Last 24 Hours (Table) 10/17/23 10/17/23 Range/Units 10:50 10:50 RBC 4.05 L (4.30-5.90) m/uL Sodium 135 L (137-145) mmol/L Potassium 7.3 H* (3.5-5.1) mmol/L Chloride 111 H (98-107) mmol/L Carbon Dioxide 15 L (22-30) mmol/L BUN 50 H (9-20) mg/dL Creatinine 2.96 H (0.66-1.25) mg/dL Glucose 103 H (74-99) mg/dL Assessment and Plan (1) Finger infection Current Visit: Yes Status: Acute Code(s): L08.9 - LOCAL INFECTION OF THE SKIN AND SUBCUTANEOUS TISSUE, UNSP SNOMED Code(s): 178996348 Plan: 1patient with a left middle finger Tip infection in this patient who did have the habit of biting on his nailbed could be related to the oral jaswinder however gram-positive pathogen not all excluded in this patient apparently has been clindamycin and was on Bactrim now presented with elevated potassium 2-nursing staff was advised to get in contact with the orthopedic surgeon to see if they can get the culture as at this point is nothing to culture the area has dried out 3-we will check x-rays of the left middle finger 4-check inflammatory markers 5-continue with doxycycline we will add Unasyn and see clinical response We will follow on clinical condition and cultures to further adjust medication if needed Thank you for this consultation we will follow the patient along with you Dictation was produced using [employer] dictation software. please excuse any grammatical, word or spelling errors. Time with Patient: Greater than 30
[2023-10-17 21:29] LABS: Glucose,Whole Blood 87 mg/dL (70-110)
[2023-10-17] MEDS: SODIUM ZIRCONIUM CYCLOSILICATE 10 GM PACKET PO SCH (21:40)
[2023-10-17] MEDS: DEXTROSE 5% IN WATER 1,000 ML with SODIUM BICARB (1 MEQ/ML) 150 ML IV SCH (21:40)
[2023-10-17] MEDS: HEPARIN SODIUM,PORCINE 5,000 UNIT/ML 1 ML VIAL SQ SCH (23:40)
[2023-10-18] MEDS: DEXTROSE 50% SYRINGE 50 ML IVP ONE ×2 (01:53→09:07)
[2023-10-18] MEDS: INSULIN REGULAR 100 UNIT/ML VIAL (IV) IV ONE ×2 (01:54→09:08)
[2023-10-18] MEDS: CALCIUM GLUCONATE IN NACL 1 GM in SALINE 1 100ML.BAG IVPB ONE (01:56)
[2023-10-18] MEDS: FUROSEMIDE 10 MG/ML 4 ML VIAL IV STA (02:16)
[2023-10-18 04:36] VITALS: RESP 16
[2023-10-18] MEDS: carvediloL 6.25 MG TAB PO SCH (06:09)
[2023-10-18 06:57] LABS: HCT 35.9 % (39.0-53.0); HGB 11.7 gm/dL (13.0-17.5); MCHC 32.7 g/dL (31.0-37.0); Mean Platelet Volume 7.7; Platelet Count 216 k/uL (150-450); RBC 3.66 m/uL (4.30-5.90); RDW 13.3 % (11.5-15.5)
[2023-10-18 07:38] LABS: ALT 18 U/L (4-49); AST 22 U/L (17-59); African American GFR (CKD) 20 (>60 ml/min/1.73 sqM); Albumin 3.6 g/dL (3.5-5.0); Alkaline Phosphatase 98 U/L (38-126); Anion Gap 10 mmol/L; Blood Urea Nitrogen 51 mg/dL (9-20); C Reactive Protein 0.7 mg/dL (<1.0); Calcium 9.2 mg/dL (8.4-10.2); Carbon Dioxide 17 mmol/L (22-30); Chloride 108 mmol/L (98-107); Glucose 107 mg/dL (74-99); Magnesium 1.3 mg/dL (1.6-2.3); Non-African American GFR(CKD) 18 (>60 ml/min/1.73 sqM); Sodium 135 mmol/L (137-145); Total Bilirubin 0.9 mg/dL (0.2-1.3); Total Protein 6.5 g/dL (6.3-8.2)
[2023-10-18 07:44] LABS: Potassium 6.2 mmol/L (3.5-5.1)
[2023-10-18] MEDS: ESCITALOPRAM 10 MG TAB PO SCH (08:20)
[2023-10-18] MEDS: amLODIPine 5 MG TAB PO SCH (08:21)
[2023-10-18] MEDS: DEXTROSE 50% SYRINGE 50 ML IVP STA ×2 (09:16→10:57)
[2023-10-18 10:36] LABS: Glucose,Whole Blood 46 mg/dL (70-110)
[2023-10-18 10:47] LABS: Glucose,Whole Blood 59 mg/dL (70-110)
[2023-10-18 11:00] LABS: Glucose,Whole Blood 114 mg/dL (70-110)
--- NOTE | 2023-10-18 11:21 | XR ---
Left middle finger COMPARISON: 06/01/2022. TECHNIQUE: 3 views of left middle finger were obtained. FINDINGS: There is marked soft tissue swelling. There is ill definition with cortical destruction of the distal phalanx of third digit. No intra-articular abnormalities are seen. There are no radiopaque foreign bodies. IMPRESSION: Cortical changes and soft tissue swelling consistent with cellulitis and underlying osteomyelitis of the distal phalanx of the third digit.
[2023-10-18 12:33] LABS: Potassium 5.3 mmol/L (3.5-5.1)
--- NOTE | 2023-10-18 13:31 | P.PN ---
Subjective patient is seen for follow-up for acute kidney injury and hyperkalemia. Currently maintained on IV bicarb. Patient has been voiding well. No evidence of urine retention. Serum potassium decreased to 5.3 today. Serum creatinine was 3.3 early this morning. Objective - Vital Signs Vital signs: Vital Signs Temp 98.0 F 10/18/23 12:00 Pulse 78 10/18/23 12:00 Resp 16 10/18/23 12:00 BP 104/55 10/18/23 12:00 Pulse Ox 96 10/18/23 12:00 FiO2 Intake & Output 10/17/23 10/18/23 10/18/23 18:59 06:59 18:59 Intake Total 1080 Output Total 1200 2850 1050 Balance -1200 -2850 30 Weight 109.769 kg 113.7 kg Intake: Intake, IV Titration 960 Amount Dextrose 5% in Water 1, 720 000 ml @ 80 mls/hr IV . [id number] VONDA with Sodium Bicarb (1 Meq/ml) 150 ml Rx#:[id number] Sodium Chloride 0.9% 1, 240 000 ml @ 60 mls/hr IV . [id number] VONDA Rx#:[id number] Oral 120 Output: Urine 1200 2850 1050 Other: Voiding Method Urinal Urinal # Voids 3 2 # Bowel Movements 0 1 - Exam patient is awake, comfortable, no acute distress. Alert oriented 3 Examination of the heart S1 and S2 Examination of the lungs bilateral breath sounds are heard Abdomen is soft nontender Examination of lower extremities shows edema 1+ bilaterally ILLUMINATOR exam grossly intact - Labs CBC & Chem 7: 10/18/23 06:35 10/18/23 11:14 Labs: Abnormal Lab Results - Last 24 Hours (Table) 10/17/23 10/17/23 10/17/23 Range/Units 15:24 20:20 23:45 RBC (4.30-5.90) m/uL Hgb (13.0-17.5) gm/dL Hct (39.0-53.0) % Sodium (137-145) mmol/L Potassium 6.9 H* 6.1 H* 6.2 H* (3.5-5.1) mmol/L Chloride (98-107) mmol/L Carbon Dioxide (22-30) mmol/L BUN (9-20) mg/dL Creatinine (0.66-1.25) mg/dL Glucose (74-99) mg/dL POC Glucose (mg/dL) (70-110) mg/dL Magnesium (1.6-2.3) mg/dL 10/18/23 10/18/23 10/18/23 Range/Units 06:35 06:35 10:32 RBC 3.66 L (4.30-5.90) m/uL Hgb 11.7 L (13.0-17.5) gm/dL Hct 35.9 L (39.0-53.0) % Sodium 135 L (137-145) mmol/L Potassium 6.2 H* (3.5-5.1) mmol/L Chloride 108 H (98-107) mmol/L Carbon Dioxide 17 L (22-30) mmol/L BUN 51 H (9-20) mg/dL Creatinine 3.30 H (0.66-1.25) mg/dL Glucose 107 H (74-99) mg/dL POC Glucose (mg/dL) 46 L* (70-110) mg/dL Magnesium 1.3 L (1.6-2.3) mg/dL 10/18/23 10/18/23 10/18/23 Range/Units 10:46 10:59 11:14 RBC (4.30-5.90) m/uL Hgb (13.0-17.5) gm/dL Hct (39.0-53.0) % Sodium 135 L (137-145) mmol/L Potassium 5.3 H (3.5-5.1) mmol/L Chloride (98-107) mmol/L Carbon Dioxide (22-30) mmol/L BUN (9-20) mg/dL Creatinine (0.66-1.25) mg/dL Glucose (74-99) mg/dL POC Glucose (mg/dL) 59 L 114 H (70-110) mg/dL Magnesium (1.6-2.3) mg/dL Assessment and Plan Assessment: 1. Acute kidney injury , possibly ATN. Started on IV fluids. UA is benign. no evidence of obstructive uropathy on ultrasound. 2. metabolic acidosis associated with acute kidney injury currently maintained on bicarb drip. 3. Hypertension maintained on clonidine, Coreg and RANJIT inhibitor's. Lotrel on hold 4. Hyperkalemia associated with use of Bactrim as well as acute kidney injury and Ranjit inhibitors. Rule out obstructive uropathy Plan: continue with IV bicarb. Repeat labs in a.m. Will need follow-up as outpatient. Maintain low potassium diet. possible discharge in a.m. Replace magnesium
--- NOTE | 2023-10-18 14:46 | P.PN ---
Subjective Progress Note Date: 10/18/23 Hospital Course: Patient is a very pleasant 73-year-old male with a past medical history of hypertension and CKD stage IIIb. He presented to the emergency department as directed by his PCP for reports of hyperkalemia. Patient reports he was evaluated by his primary care physician for reports of leg muscle cramping in his right upper thigh and continued treatment of osteomyelitis of left hand middle finger, patient reports he completed antibiotic clindamycin and was started on oral antibiotic with Bactrim and had some routine lab work completed. Patient reports he received a call yesterday evening that he needed to come to the emergency department because his potassium was 7.7. Patient denies having any complaints including headache, lightheadedness, dizziness, chest pain, palpitations, shortness of breath, abdominal pain, nausea, vomiting, flank pain, changes in or difficulties with urinary function, or experiencing any swelling in his lower extremities. Patient states he has been told his kidney function was not good in the past, but denies ever being evaluated by a edi developer. Patient states he does not understand why his potassium is so high because he feels fine. Upon arrival to our facility, patient underwent evaluation in the emergency department. Vital signs upon arrival show blood pressure 146/68, heart rate 98, respiratory rate 16, temp 99.1 F, and SpO2 of 99% on room air. The revealing normal sinus rhythm at 71 bpm with mildly peaked T waves upon personal review and interpretation. Labs were completed and reviewed. CBC unremarkable. BMP showing potassium 7.3, chloride 111, bicarb 15, anion gap 9, BUN 50, creatinine 2.96, and GFR of 20 (with baseline creatinine of 1.8) blood glucose 103. Magnesium 1.7. Liver profile unremarkable. Patient received hyperkalemia cocktail in the emergency department and admitted under our services with consultation to nephrology. Physical exam: Patient was seen and fully evaluated at bedside this morning. He continues to deny having any pain or complaints at this time. During assessment patient was noted to be clammy and reported feeling slight lightheadedness. Notified nursing staff to get [id number] glucose. Blood glucose was 46. Patient was provided with juice and 1 amp of D50. Vital signs reviewed and stable. General: Nontoxic, no distress and appears stated age. Derm: Skin warm and dry, normal coloration for ethnicity. Head: Atraumatic, normocephalic and symmetric. Eyes: EOM's intact, no lid lag, and anicteric sclera Mouth: no lip lesions, mucus membranes moist Cardiovascular: regular rate and rhythm with normal S1S2, no murmur, positive posterior tibial pulses bilaterally, and cap refill < 2 seconds. Lungs: Respirations even, regular, and unlabored on room air. Lungs CTA bilaterally, no rhonchi, no rales, no wheezing, and no accessory muscle usage. Abdominal: soft, nontender to palpation, no guarding, no appreciable organomegaly Ext: ROM intact. No gross muscle atrophy, 1+ lower extremity edema, no contractures Neuro: Speech clear, face symmetrical and CN II-XII grossly intact with no noted focal neuro deficits Psych: Alert and oriented to person, place, time, and situation. Appropriate and pleasant affect. Assessment and Plan of Care: Hyperkalemia Acute kidney injury on CKD stage IIIb. Hypoglycemia Anion gap metabolic acidosis -Patient received hyperkalemia cocktail in the emergency department consisting of IV fluid bolus, Lokelma, sodium bicarb, regular insulin with dextrose, and calcium gluconate. -EKG showing normal sinus rhythm at 71 bpm with mildly peaked T waves upon personal review and interpretation. -Hold nephrotoxic medications including Bactrim, Lasix, and Lotrel. -Nephrology following and discussed case with edi developer Dr. Holman. -Continue telemetry monitoring. -Continue gentle IV fluid hydration with 0.9% normal saline. -Repeat potassium to be drawn at 3 PM and further orders pending these results. -Order placed for stat renal ultrasound and urinalysis. -Patient placed on strict I's and O's. Hypertension -Hold Lotrel secondary to hyperkalemia and acute kidney injury and patient to continue with carvedilol 20 mg daily and amlodipine 5 mg daily. Currently blood pressure stable 146/68. Previously diagnosed osteomyelitis of left hand middle finger -Patient reports completing course of clindamycin and recently started on Bactrim by PCP. -Bactrim discontinued upon admission secondary to VIKA and hyperkalemia and placed patient on doxycycline. -Infectious disease consulted and started patient on Unasyn in addition to doxycycline and ordered for left hand x-rays. agricultural service technician at bedside obtaining x-rays at time of exam. Data and imaging reviewed: Vital signs reviewed and stable. Blood pressure 128/64, heart rate 71, respiratory rate 16, temp 98.3 F, and SpO2 of 97% on room air. Labs reviewed. CBC showing normocytic anemia with hemoglobin of 11.7. BMP showing potassium of 6.2 and non-anion gap metabolic acidosis with chloride of 108, bicarb of 17, and anion gap of 10 with renal function continuing to elevate with BUN of 51, creatinine of 3.30, and GFR of 18. Magnesium 1.3 and being replaced. CODE STATUS: Full code DVT prophylaxis: Heparin Anticipated discharge date: Pending clinical course Anticipated discharge place: Home Patient was seen independently by Nurse Practitioner. This document was prepared using [employer] dictation software. Please allow for errors in web weaver while rare they do occur. I reviewed the documentation as provided by the ALFONZO above, who is the original author of this note. I agree with the documented assessment and plan, with the following changes: none Objective - Vital Signs Vital signs: Vital Signs Temp 97.8 F 10/18/23 04:34 Pulse 68 10/18/23 04:34 Resp 16 10/18/23 04:34 BP 142/65 10/18/23 04:34 Pulse Ox 97 10/18/23 04:34 FiO2 Intake & Output 10/17/23 10/18/23 10/18/23 18:59 06:59 18:59 Output Total 1200 2850 Balance -1200 -2850 Weight 109.769 kg 113.7 kg Output: Urine 1200 2850 Other: Voiding Method Urinal # Voids 3 # Bowel Movements 0 - Labs CBC & Chem 7: 10/18/23 06:35 10/18/23 11:14 Labs: Abnormal Lab Results - Last 24 Hours (Table) 10/17/23 10/17/23 10/17/23 Range/Units 10:50 10:50 15:24 RBC 4.05 L (4.30-5.90) m/uL Hgb (13.0-17.5) gm/dL Hct (39.0-53.0) % Sodium 135 L (137-145) mmol/L Potassium 7.3 H* 6.9 H* (3.5-5.1) mmol/L Chloride 111 H (98-107) mmol/L Carbon Dioxide 15 L (22-30) mmol/L BUN 50 H (9-20) mg/dL Creatinine 2.96 H (0.66-1.25) mg/dL Glucose 103 H (74-99) mg/dL Magnesium (1.6-2.3) mg/dL 10/17/23 10/17/23 10/18/23 Range/Units 20:20 23:45 06:35 RBC 3.66 L (4.30-5.90) m/uL Hgb 11.7 L (13.0-17.5) gm/dL Hct 35.9 L (39.0-53.0) % Sodium (137-145) mmol/L Potassium 6.1 H* 6.2 H* (3.5-5.1) mmol/L Chloride (98-107) mmol/L Carbon Dioxide (22-30) mmol/L BUN (9-20) mg/dL Creatinine (0.66-1.25) mg/dL Glucose (74-99) mg/dL Magnesium (1.6-2.3) mg/dL 10/18/23 Range/Units 06:35 RBC (4.30-5.90) m/uL Hgb (13.0-17.5) gm/dL Hct (39.0-53.0) % Sodium 135 L (137-145) mmol/L Potassium 6.2 H* (3.5-5.1) mmol/L Chloride 108 H (98-107) mmol/L Carbon Dioxide 17 L (22-30) mmol/L BUN 51 H (9-20) mg/dL Creatinine 3.30 H (0.66-1.25) mg/dL Glucose 107 H (74-99) mg/dL Magnesium 1.3 L (1.6-2.3) mg/dL
[2023-10-18] MEDS: MAGNESIUM SULFATE-D5W PMX 1 GM in DEXTROSE/WATER 1 100ML.BAG IVPB SCH (15:05)
--- NOTE | 2023-10-18 15:08 | P.PN ---
Subjective Progress Note Date: 10/18/23 Principal diagnosis: Reason for follow-up left middle finger infection Patient is a 73-year-old male with a past medical history significant for hypertension chronic kidney disease stage IIIb has been sent to the ER by the PCP as the patient was noticed to have elevated potassium level as result of Bactrim use with the patient was taken for the left middle finger tip infection. On today's evaluation that is 10/18/2023,the patient denies any fever or any chills, patient is breathing comfortably on room air, the patient denies chest pain shortness of breath and no significant cough, patient denies abdominal pain, no nausea vomiting or diarrhea. Patient denies pain to the left middle fingertip wound. The patient white count 7.0 CRP 0.7 sed rate is pending potassium is 5.3 x-ray cortical changes soft tissue swelling consistent with cellulitis osteomyelitis not excluded Objective - Vital Signs Vital signs: Vital Signs Temp 98.0 F 10/18/23 12:00 Pulse 78 10/18/23 12:00 Resp 16 10/18/23 12:00 BP 104/55 10/18/23 12:00 Pulse Ox 96 10/18/23 12:00 FiO2 Intake & Output 10/17/23 10/18/23 10/18/23 18:59 06:59 18:59 Intake Total 1080 Output Total 1200 2850 1050 Balance -1200 -2850 30 Weight 109.769 kg 113.7 kg Intake: Intake, IV Titration 960 Amount Dextrose 5% in Water 1, 720 000 ml @ 80 mls/hr IV . [id number] VONDA with Sodium Bicarb (1 Meq/ml) 150 ml Rx#:[id number] Sodium Chloride 0.9% 1, 240 000 ml @ 60 mls/hr IV . [id number] VONDA Rx#:[id number] Oral 120 Output: Urine 1200 2850 1050 Other: Voiding Method Urinal Urinal # Voids 3 2 # Bowel Movements 0 1 - Exam GENERAL DESCRIPTION: An elderly male lying in bed in no distress RESPIRATORY SYSTEM: Unlabored breathing , decreased breath sounds at bases HEART: S1 S2 regular rate and rhythm , ABDOMEN: Soft , no tenderness EXTREMITIES: Left middle finger tip is swollen no redness no drainage - Labs CBC & Chem 7: 10/18/23 06:35 09/06/24 11:14 Labs: Abnormal Lab Results - Last 24 Hours (Table) 10/17/23 10/17/23 10/17/23 Range/Units 15:24 20:20 23:45 RBC (4.30-5.90) m/uL Hgb (13.0-17.5) gm/dL Hct (39.0-53.0) % Sodium (137-145) mmol/L Potassium 6.9 H* 6.1 H* 6.2 H* (3.5-5.1) mmol/L Chloride (98-107) mmol/L Carbon Dioxide (22-30) mmol/L BUN (9-20) mg/dL Creatinine (0.66-1.25) mg/dL Glucose (74-99) mg/dL POC Glucose (mg/dL) (70-110) mg/dL Magnesium (1.6-2.3) mg/dL 10/18/23 10/18/23 10/18/23 Range/Units 06:35 06:35 10:32 RBC 3.66 L (4.30-5.90) m/uL Hgb 11.7 L (13.0-17.5) gm/dL Hct 35.9 L (39.0-53.0) % Sodium 135 L (137-145) mmol/L Potassium 6.2 H* (3.5-5.1) mmol/L Chloride 108 H (98-107) mmol/L Carbon Dioxide 17 L (22-30) mmol/L BUN 51 H (9-20) mg/dL Creatinine 3.30 H (0.66-1.25) mg/dL Glucose 107 H (74-99) mg/dL POC Glucose (mg/dL) 46 L* (70-110) mg/dL Magnesium 1.3 L (1.6-2.3) mg/dL 10/18/23 10/18/23 10/18/23 Range/Units 10:46 10:59 11:14 RBC (4.30-5.90) m/uL Hgb (13.0-17.5) gm/dL Hct (39.0-53.0) % Sodium 135 L (137-145) mmol/L Potassium 5.3 H (3.5-5.1) mmol/L Chloride (98-107) mmol/L Carbon Dioxide (22-30) mmol/L BUN (9-20) mg/dL Creatinine (0.66-1.25) mg/dL Glucose (74-99) mg/dL POC Glucose (mg/dL) 59 L 114 H (70-110) mg/dL Magnesium (1.6-2.3) mg/dL Assessment and Plan (1) Finger infection Current Visit: Yes Status: Acute Code(s): L08.9 - LOCAL INFECTION OF THE SKIN AND SUBCUTANEOUS TISSUE, UNSP SNOMED Code(s): 151728703 Plan: 1patient with a left middle finger Tip infection in this patient who did have the habit of biting on his nailbed could be related to the oral jaswinder however gram-positive pathogen not all excluded in this patient apparently has been clindamycin and was on Bactrim now presented with elevated potassium 2-nursing staff was advised to get in contact with the orthopedic surgeon to see if they can get the culture as at this point is nothing to culture the area has dried out 3- x-rays of the left middle finger was suspicious for cortical erosion and possible osteomyelitis to the left middle finger ESR is currently pending 4-patient to-continue with doxycycline and Unasyn and try to obtain cultures from orthopedic associate Dictation was produced using [employer] dictation software. please excuse any grammatical, word or spelling errors. Time with Patient: Less than 30
[2023-10-18 20:09] LABS: Erythrocyte Sedimentation Rate 45 mm/Hr (0-20)
[2023-10-19 07:30] LABS: HCT 32.4 % (39.0-53.0); HGB 10.9 gm/dL (13.0-17.5); MCH 32.8 pg (25.0-35.0); MCHC 33.8 g/dL (31.0-37.0); Mean Platelet Volume 7.7; Platelet Count 195 k/uL (150-450); RBC 3.33 m/uL (4.30-5.90); RDW 13.2 % (11.5-15.5); WBC 6.1 k/uL (3.8-10.6)
[2023-10-19 08:32] LABS: ALT 16 U/L (4-49); AST 21 U/L (17-59); African American GFR (CKD) 23 (>60 ml/min/1.73 sqM); Albumin 3.2 g/dL (3.5-5.0); Alkaline Phosphatase 84 U/L (38-126); Anion Gap 6 mmol/L; Blood Urea Nitrogen 53 mg/dL (9-20); Calcium 8.9 mg/dL (8.4-10.2); Carbon Dioxide 24 mmol/L (22-30); Chloride 103 mmol/L (98-107); Glucose 129 mg/dL (74-99); Magnesium 1.6 mg/dL (1.6-2.3); Non-African American GFR(CKD) 20 (>60 ml/min/1.73 sqM); Sodium 133 mmol/L (137-145)
--- NOTE | 2023-10-19 12:26 | P.PN ---
Subjective patient is seen for follow-up for acute kidney injury and hyperkalemia. Currently maintained on IV bicarb. Patient has been voiding well. No evidence of urine retention. Serum potassium decreased to 5.0 today. Serum creatinine was down to 2.9. Patient wants to go home. Objective - Vital Signs Vital signs: Vital Signs Temp 97.9 F 10/19/23 10:12 Pulse 72 10/19/23 10:12 Resp 16 10/19/23 10:12 BP 149/75 10/19/23 10:12 Pulse Ox 97 10/19/23 10:12 FiO2 Intake & Output 10/18/23 10/19/23 10/19/23 18:59 06:59 18:59 Intake Total 2150 240 Output Total 1450 Balance 700 240 Weight 114.8 kg Intake: IV 10 Invasive Line 2 10 Intake, IV Titration 960 Amount Dextrose 5% in Water 1, 720 000 ml @ 80 mls/hr IV . [id number] VONDA with Sodium Bicarb (1 Meq/ml) 150 ml Rx#:[id number] Sodium Chloride 0.9% 1, 240 000 ml @ 60 mls/hr IV . [id number] VONDA Rx#:[id number] Oral 1180 240 Output: Urine 1450 Other: Voiding Method Urinal Urinal Urinal # Voids 2 # Bowel Movements 1 - Exam patient is awake, comfortable, no acute distress. Alert oriented 3 Examination of the heart S1 and S2 Examination of the lungs bilateral breath sounds are heard Abdomen is soft nontender Examination of lower extremities shows edema 1+ bilaterally EMBEDDED SOFTWARE ARCHITECT exam grossly intact - Labs CBC & Chem 7: 10/19/23 06:56 10/19/23 06:56 Labs: Abnormal Lab Results - Last 24 Hours (Table) 10/18/23 10/18/23 10/19/23 Range/Units 06:35 11:14 06:56 RBC 3.33 L (4.30-5.90) m/uL Hgb 10.9 L (13.0-17.5) gm/dL Hct 32.4 L (39.0-53.0) % ESR 45 H (0-20) mm/Hr Sodium 135 L (137-145) mmol/L Potassium 5.3 H (3.5-5.1) mmol/L BUN (9-20) mg/dL Creatinine (0.66-1.25) mg/dL Glucose (74-99) mg/dL Total Protein (6.3-8.2) g/dL Albumin (3.5-5.0) g/dL 10/19/23 Range/Units 06:56 RBC (4.30-5.90) m/uL Hgb (13.0-17.5) gm/dL Hct (39.0-53.0) % ESR (0-20) mm/Hr Sodium 133 L (137-145) mmol/L Potassium (3.5-5.1) mmol/L BUN 53 H (9-20) mg/dL Creatinine 2.93 H (0.66-1.25) mg/dL Glucose 129 H (74-99) mg/dL Total Protein 6.0 L (6.3-8.2) g/dL Albumin 3.2 L (3.5-5.0) g/dL Microbiology - Last 24 Hours (Table) 10/17/23 15:28 Blood Culture - Preliminary Blood Assessment and Plan Assessment: 1. Acute kidney injury , possibly ATN. Started on IV fluids. UA is benign. no evidence of obstructive uropathy on ultrasound. 2. metabolic acidosis associated with acute kidney injury currently maintained on bicarb drip. 3. Hypertension maintained on clonidine, Coreg and RANJIT inhibitor's. Lotrel on hold 4. Hyperkalemia associated with use of Bactrim as well as acute kidney injury and Ranjit inhibitors. No urine retention. 5. CKD stage IIIb-IV with baseline creatinine about 1.7 to 2 mg/dL. Etiology is likely nephrosclerosis. Plan: Okay for discharge from nephrology standpoint. Patient will need close monitoring of labs as outpatient. Repeat BMP in 2 days post discharge. Maintain oral sodium bicarb 650 mg twice daily post discharge. Follow-up as outpatient for CKD. Continue to hold RANJIT inhibitors for now Maintain low potassium diet post discharge.
[2023-10-19 12:32] VITALS: BP 138/64; PULSE 69; TEMP 98
--- NOTE | 2023-10-19 14:02 | P.DS ---
Providers Date of admission: 10/17/23 11:49 Expected date of discharge: 10/19/23 Attending physician: Adal Shelby MD Consults: 10/17/23 11:53 Consult Physician Urgent Consulting Provider: Jeannette Holman Consult Reason/Comments: Renal failure Do you want consulting provider notified?: Already Contacted 10/17/23 12:44 Consult Physician Routine Consulting Provider: Christel Child Consult Reason/Comments: pt tx for osteo L hand by PCP w/ clinda here w/ VIKA and abx changed to Doxy Do you want consulting provider notified?: Yes Primary care physician: Isaiah Mckitrick Hospital Course: Discharge Diagnosis: Hyperkalemia. Hyperkalemia resolved with morning potassium of 5.0. Patient will require close follow-up with all source intelligence technician and repeat labs in 2 days status post discharge. Acute kidney injury on CKD stage IIIb. Renal function remains elevated but improving, patient will require close follow-up with all source intelligence technician and repeat labs in 2 days status post discharge. Per nephrology patient discharged home on sodium bicarb 650 mg twice daily. Hypoglycemia. Isolated episode secondary to adverse affects of medication, hyperkalemia cocktail with use of insulin. Resolved after 1 amp of D50 with no further episodes. Anion gap metabolic acidosis. Resolved. Patient discharged home on sodium b icarb 650 mg twice daily and to follow-up outpatient closely with all source intelligence technician. Repeat labs in 2 days. Hypertension. Lotrel was discontinued secondary to hyperkalemia and acute kidney injury on chronic kidney disease. Patient to continue with carvedilol 20 mg daily and started on amlodipine 5 mg daily. Osteomyelitis of left hand middle finger. Bactrim discontinued secondary to VIKA on CKD and hyperkalemia. Blood culture showing no growth. X-ray left hand middle finger showing cortical changes and soft tissue swelling consistent with cellulitis and underlying osteomyelitis of the distal phalanx of the third digit of left hand. Patient was evaluated by infectious disease. Discussed case in detail with Dr. Child and patient cleared for discharge home on doxycycline 100 mg twice daily x 21 days and Augmentin 500/125 mg (renal dose) every 12 hours x 21 days. Patient to follow-up outpatient with infectious disease in 1 week for continued close monitoring. Hospital Course: Patient is a very pleasant 73-year-old male with a past medical history of hypertension and CKD stage IIIb. He presented to the emergency department as directed by his PCP for reports of hyperkalemia. Patient reports he was evaluated by his primary care physician for reports of leg muscle cramping in his right upper thigh and continued treatment of osteomyelitis of left hand middle finger, patient reports he completed antibiotic clindamycin and was started on oral antibiotic with Bactrim and had some routine lab work completed. Patient reports he received a call yesterday evening that he needed to come to the emergency department because his potassium was 7.7. Patient denies having any complaints including headache, lightheadedness, dizziness, chest pain, palpitations, shortness of breath, abdominal pain, nausea, vomiting, flank pain, changes in or difficulties with urinary function, or experiencing any swelling in his lower extremities. Patient states he has been told his kidney function was not good in the past, but denies ever being evaluated by a all source intelligence technician. Patient states he does not understand why his potassium is so high because he feels fine. Upon arrival to our facility, patient underwent evaluation in the emergency department. Vital signs upon arrival show blood pressure 146/68, heart rate 98, respiratory rate 16, temp 99.1 F, and SpO2 of 99% on room air. The revealing normal sinus rhythm at 71 bpm with mildly peaked T waves upon personal review and interpretation. Labs were completed and reviewed. CBC unremarkable. BMP showing potassium 7.3, chloride 111, bicarb 15, anion gap 9, BUN 50, creatinine 2.96, and GFR of 20 (with baseline creatinine of 1.8) blood glucose 103. Magnesium 1.7. Liver profile unremarkable. Patient received hyperkalemia cocktail in the emergency department and admitted under our services with consultation to nephrology. Patient underwent recurrent treatments for hyperkalemia and was evaluated by all source intelligence technician. He was placed on a bicarb infusion and renal function and potassium slowly improving. He was evaluated by infectious disease and underwent x-ray of the left hand middle finger showing cortical changes and soft tissue swelling consistent with cellulitis and underlying osteomyelitis. Multiple medication changes were made during this admission. Lotrel, Bactrim, baclofen, allopurinol, and Lasix were all discontinued secondary to VIKA on chronic kidney disease and hyperkalemia. Patient being discharged home on sodium bicarb 650 mg twice daily, amlodipine 5 mg daily, doxycycline 100 mg twice daily x 21 days, and Augmentin 500/125 mg twice daily x 21 days. Patient also provided with a 3-day prescription for [place] 5/325 mg tablets to be used for moderate to severe pain from osteomyelitis of left hand middle finger. Patient has been cleared by all source intelligence technician and infectious disease for discharge. He is medically stable at this time and remains free from any complaints. Patient to follow-up with PCP in 2 to 3 days postdischarge, all source intelligence technician in 1 week, and infectious disease in 1 week. Patient provided with prescription for repeat lab draw in 2 days. Physical exam: Vital signs reviewed and stable. General: Nontoxic, no distress and appears stated age. Derm: Skin warm and dry, normal coloration for ethnicity. Head: Atraumatic, normocephalic and symmetric. Eyes: EOM's intact, no lid lag, and anicteric sclera Mouth: no lip lesions, mucus membranes moist Cardiovascular: regular rate and rhythm with normal S1S2, no murmur, positive posterior tibial pulses bilaterally, and cap refill < 2 seconds. Lungs: Respirations even, regular, and unlabored on room air. Lungs CTA bilaterally, no rhonchi, no rales, no wheezing, and no accessory muscle usage. Abdominal: soft, nontender to palpation, no guarding, no appreciable org anomegaly Ext: ROM intact. No gross muscle atrophy, 1+ lower extremity edema, no contractures. Left hand middle finger moderate swelling, no erythema. Neuro: Speech clear, face symmetrical and CN II-XII grossly intact with no noted focal neuro deficits Psych: Alert and oriented to person, place, time, and situation. Appropriate and pleasant affect. A total of 39 minutes of time were spent preparing this complex discharge summary. Pt was discharged on 10/19/2023 at 1:45 PM. Patient was seen independently by Nurse Practitioner. This document was prepared using [employer] dictation software. Please allow for errors in tafe registrar while rare they do occur. I reviewed the documentation as provided by the ALFONZO above, who is the original author of this note. I agree with the documented assessment and plan, with the following changes: none Patient Condition at Discharge: Stable Plan - Discharge Summary New Discharge Prescriptions: New Amoxic-Pot Clav 500-125 mg [Augmentin 500-125 mg] 1 tab PO Q12HR 21 Days #42 tab HYDROcodone/APAP 5-325MG [[place] 5-325] 1 each PO Q4HR PRN #18 tab PRN Reason: Moderate Pain (Scale 4 To 6) amLODIPine [Norvasc] 5 mg PO DAILY 30 Days #30 tab Doxycycline [Vibramycin] 100 mg PO BID 21 Days #42 cap Sodium Bicarbonate Tab 650 mg PO BID 30 Days #60 tablet Continue Escitalopram [Lexapro] 10 mg PO DAILY cloNIDine HCL [Catapres] 0.1 mg PO DAILY PRN PRN Reason: Blood Pressure - High traZODone HCL [Desyrel] 50 mg PO HS carvediloL phosphate [carvediloL phosphate ER] 20 mg PO DAILY Mupirocin 2% Oint [Bactroban 2% Oint] 1 applic TOPICAL TID ALPRAZolam [Xanax] 0.25 mg PO DAILY PRN PRN Reason: Anxiety Ondansetron [Zofran] 4 mg PO Q8HR PRN PRN Reason: Nausea Discontinued amLODIPine BESYLATE/BENAZEPRIL [Lotrel 5-10 mg Capsule] 1 cap PO DAILY Sulfamethox-Tmp 800-160Mg [Bactrim DS 800-160 mg] 1 tab PO Q12HR Baclofen 10 mg PO TID PRN PRN Reason: Muscle Spasm allopurinoL [Zyloprim] 100 mg PO DAILY Furosemide [Lasix] 20 mg PO DAILY Discharge Medication List ALPRAZolam [Xanax] 0.25 mg PO DAILY PRN 10/17/23 [History] Escitalopram [Lexapro] 10 mg PO DAILY 10/17/23 [History] Mupirocin 2% Oint [Bactroban 2% Oint] 1 applic TOPICAL TID 10/17/23 [History] Ondansetron [Zofran] 4 mg PO Q8HR PRN 10/17/23 [History] carvediloL phosphate [carvediloL phosphate ER] 20 mg PO DAILY 10/17/23 [History] cloNIDine HCL [Catapres] 0.1 mg PO DAILY PRN 10/17/23 [History] traZODone HCL [Desyrel] 50 mg PO HS 10/17/23 [History] Amoxic-Pot Clav 500-125 mg [Augmentin 500-125 mg] 1 tab PO Q12HR 21 Days #42 tab 10/19/23 [Rx] Doxycycline [Vibramycin] 100 mg PO BID 21 Days #42 cap 10/19/23 [Rx] HYDROcodone/APAP 5-325MG [[place] 5-325] 1 each PO Q4HR PRN #18 tab 10/19/23 [Rx] Sodium Bicarbonate Tab 650 mg PO BID 30 Days #60 tablet 10/19/23 [Rx] amLODIPine [Norvasc] 5 mg PO DAILY 30 Days #30 tab 10/19/23 [Rx] Follow up Appointment(s)/Referral(s): Jeannette Holman MD [STAFF PHYSICIAN] - 1 Week (Offices are closed please call to make a follow up appointment) Archana Del Angel DO [Doctor of Osteopathic Medicine] - 1 Week (Offices are closed please call to make a follow up appointment) Isaiah Luna DO [Primary Care Provider] - 1-2 days (Offices are closed please call to make a follow up appointment) Christel Child MD [STAFF PHYSICIAN] - 1 Week Ambulatory/Diagnostic Orders: Basic Metabolic Panel [LAB.AMB] Time Frame: 2 Days, Location: None Selected Patient Instructions/Handouts: Chronic Kidney Disease (DC), Chronic Kidney Disease (GEN), Chronic Kidney Disease Diet (DC), Osteomyelitis (DC), Hyperkalemia (DC) Activity/Diet/Wound Care/Special Instructions: Activity: As tolerated. Take breaks as needed. Diet: Heart healthy and carb consistent diet. Avoid salts, or foods with hidden salts such as canned or boxed foods and frozen dinners. Extra salt makes your heart work harder and traps the fluid in your body for longer. Avoid foods high in potassium. Special Instructions: Multiple medication changes were made during this admission. It is important to thoroughly review your discharge medication list and appropriately dispose of all discontinued medications to prevent medication errors. Take all of your medications as directed and remember to keep all of your doctor's appointments and follow-up as needed. Thank you for allowing us to participate in your care, it was truly a pleasure having you for our patient!!! Discharge/Stand Alone Forms: Work/School Release Discharge Disposition: HOME SELF-CARE
--- NOTE | 2023-10-19 14:51 | P.PN ---
Subjective Progress Note Date: 10/19/23 Principal diagnosis: Reason for follow-up left middle finger infection Patient is a 73-year-old male with a past medical history significant for hypertension chronic kidney disease stage IIIb has been sent to the ER by the PCP as the patient was noticed to have elevated potassium level as result of Bactrim use with the patient was taken for the left middle finger tip infection. On today's evaluation that is 10/19/2023,the patient remains to be afebrile, patient is on room air not requiring supplemental oxygen and denies any shortness of breath no chest pain or cough.Patient denies having any nausea or vomiting, no abdominal pain and no diarrhea, denies pain to the left middle finger no drainage. Patient white count 6.1, creatinine is 2.93 blood culture this admission has been negative Objective - Vital Signs Vital signs: Vital Signs Temp 98.0 F 10/19/23 12:24 Pulse 69 10/19/23 12:24 Resp 16 10/19/23 12:24 BP 138/64 10/19/23 12:24 Pulse Ox 96 10/19/23 12:24 FiO2 Intake & Output 10/18/23 10/19/23 10/19/23 18:59 06:59 18:59 Intake Total 2150 480 Output Total 1450 Balance 700 480 Weight 114.8 kg Intake: IV 10 Invasive Line 2 10 Intake, IV Titration 960 Amount Dextrose 5% in Water 1, 720 000 ml @ 80 mls/hr IV . [id number] VONDA with Sodium Bicarb (1 Meq/ml) 150 ml Rx#:[id number] Sodium Chloride 0.9% 1, 240 000 ml @ 60 mls/hr IV . [id number] VONDA Rx#:[id number] Oral 1180 480 Output: Urine 1450 Other: Voiding Method Urinal Urinal Urinal # Voids 2 # Bowel Movements 1 - Exam GENERAL DESCRIPTION: An elderly male lying in bed in no distress RESPIRATORY SYSTEM: Unlabored breathing , decreased breath sounds at bases HEART: S1 S2 regular rate and rhythm , ABDOMEN: Soft , no tenderness EXTREMITIES: Left middle finger tip is swollen no redness no drainage - Labs CBC & Chem 7: 10/19/23 06:56 10/19/23 06:56 Labs: Abnormal Lab Results - Last 24 Hours (Table) 10/18/23 10/19/23 10/19/23 Range/Units 06:35 06:56 06:56 RBC 3.33 L (4.30-5.90) m/uL Hgb 10.9 L (13.0-17.5) gm/dL Hct 32.4 L (39.0-53.0) % ESR 45 H (0-20) mm/Hr Sodium 133 L (137-145) mmol/L BUN 53 H (9-20) mg/dL Creatinine 2.93 H (0.66-1.25) mg/dL Glucose 129 H (74-99) mg/dL Total Protein 6.0 L (6.3-8.2) g/dL Albumin 3.2 L (3.5-5.0) g/dL Microbiology - Last 24 Hours (Table) 10/17/23 15:28 Blood Culture - Preliminary Blood Assessment and Plan (1) Finger infection Status: Acute Code(s): L08.9 - LOCAL INFECTION OF THE SKIN AND SUBCUTANEOUS TISSUE, UNSP SNOMED Code(s): 644437919 Plan: 1patient with a left middle finger Tip infection in this patient who did have the habit of biting on his nailbed could be related to the oral jaswinder however gram-positive pathogen not all excluded in this patient apparently has been clindamycin and was on Bactrim now presented with elevated potassium 2-outpatient orthopedic surgeon office was contacted and unfortunately no cultures were done 3- x-rays of the left middle finger was suspicious for cortical erosion and possible osteomyelitis to the left middle finger 4-patient will be advised a 3-week course of oral doxycycline and Augmentin in the outpatient setting he was offered IV antibiotics however if you do not have any cultures to be more specific about direct patient IV antibiotics and the patient was reluctant he did mention if no improvement with the oral antibiotic he may go for distal phalanx amputation care was discussed with the TACTICAL DEBRIEFER for admitting team Dictation was produced using [employer] dictation software. please excuse any gr ammatical, word or spelling errors. Time with Patient: Less than 30
== END 2023-10-19 14:32 | disposition home or self-care (01) | DRG 683 ==
LOC: EC 09:21 → 3SCARD 11:49
PROVIDERS: ADMIT Student in an Organized Health Care Education/Training Program; ATTEND Student in an Organized Health Care Education/Training Program
DX: N17.9 Acute kidney failure, unspecified (principal); E87.20 Acidosis, unspecified; M86.9 Osteomyelitis, unspecified; E16.0 Drug-induced hypoglycemia without coma; E87.5 Hyperkalemia; E87.70 Fluid overload, unspecified; I12.9 Hypertensive chronic kidney disease with stage 1 through stage 4 chronic kidney disease, or unspecified chronic kidney disease; N18.32 Chronic kidney disease, stage 3b; L03.012 Cellulitis of left finger; T38.3X5A Adverse effect of insulin and oral hypoglycemic [antidiabetic] drugs, initial encounter; Y92.230 Patient room in hospital as the place of occurrence of the external cause; Z79.899 Other long term (current) drug therapy
CPT/HCPCS: 36415; 51798; 76770; 80051; 80053; 81003; 83735; 84132; 85025; 85027; 85652; 86140; 87040; 87205; 93005; 96361; 96374; 96375; 96376; 99291

== ENCOUNTER → 2024-01-07 | Outpatient (CLI) | payer BC, MEDICARE ==
--- NOTE | 2024-01-08 07:06 | CA ---
Transthoracic Echo Report Name: Sean Geiger Age: 73 Gender: M : 1950 Exam Date: 01/07/2024 16:43 Exam Location: [facility] Ht (in): 74 Wt (lb): 260 Ordering Physician: Isaiah Luna DO Attending/Referring Phys: Coal Digger Ignacia Cox RDCS Procedure CPT: Indications: R60.0 Cardiac Hx: Technical Quality: Fair Contrast 1: Total Dose (mL): Contrast 2: Total Dose (mL): MEASUREMENTS (Male / Female) Normal Values 2D ECHO LV Diastolic Diameter PLAX 5.4 cm 4.2 - 5.9 / 3.9 - 5.3 cm LV Systolic Diameter PLAX 3.5 cm IVS Diastolic Thickness 1.2 cm 0.6 - 1.0 / 0.6 - 0.9 cm LVPW Diastolic Thickness 1.3 cm 0.6 - 1.0 / 0.6 - 0.9 cm LV Relative Wall Thickness 0.4 LVOT Diameter 2.5 cm Aortic Root Diameter 3.4 cm LA Volume 88.1 cm??? 18 - 58 / 22 - 52 cm??? LA Volume Index 35.0 cm???/m??? 16 - 28 cm???/m??? Ascending Aorta Diameter 3.8 cm DOPPLER AV Peak Velocity 132.5 cm/s AV Peak Gradient 7.0 mmHg AV Mean Velocity 96.6 cm/s AV Mean Gradient 4.1 mmHg AV Velocity Time Integral 31.0 cm LVOT Peak Velocity 108.0 cm/s LVOT Peak Gradient 4.7 mmHg LVOT Velocity Time Integral 23.8 cm LVOT Stroke Volume 120.4 cm??? LVOT Stroke Volume Index 49.6 ml/m??? LVOT Cardiac Index 3542.3 cm???/min???m??? AV Area Cont Eq vti 3.9 cm??? AV Area Cont Eq pk 4.1 cm??? MV Area PHT 3.6 cm??? Mitral E Point Velocity 66.5 cm/s Mitral A Point Velocity 75.2 cm/s Mitral E to A Ratio 0.9 MV Deceleration Time 209.0 ms TR Peak Velocity 238.6 cm/s TR Peak Gradient 22.8 mmHg Right Atrial Pressure 5.0 mmHg Pulmonary Artery Systolic Pressu 27.8 mmHg Right Ventricular Systolic Press 27.8 mmHg PV Peak Velocity 108.5 cm/s PV Peak Gradient 4.7 mmHg FINDINGS Left Ventricle Left ventricular ejection fraction is estimated at 55-60 %. Left ventricular cavity size normal. No obvious regional wall motion abnormalities.Mildly increased left ventricular wall thickness. Right Ventricle Right ventricle not well visualized. Right ventricular systolic pressure within normal limits. Right Atrium Right atrium not well visualized. Left Atrium Moderately increased left atrial volume. Mildly increased left atrial area. Mitral Valve Structurally normal mitral valve. No mitral stenosis,or prolapse.mild mitral regurgitation. Aortic Valve Trileaflet aortic valve. No aortic valve stenosis or regurgitation.aortic valve sclerosis. Tricuspid Valve Structurally normal tricuspid valve. No tricuspid stenosis. Mild tricuspid regurgitation. Pulmonic Valve Structurally normal pulmonic valve. Trace pulmonic regurgitation. No pulmonic regurgitation. Pericardium No pericardial effusion. Aorta Normal size aortic root and proximal ascending aorta. CONCLUSIONS 1. Normal left ventricular size and systolic function 2. Mild mitral and tricuspid regurgitation with no evidence of pulmonary hypertension Previewed by: Dr. Morenita Saleem MD (Electronically Signed) Final Date: 08 January 2024 07:05
== END | disposition home or self-care (01) ==
LOC: RADECHMAIN 16:37
PROVIDERS: ATTEND Internal Medicine
DX: I08.1 Rheumatic disorders of both mitral and tricuspid valves (principal); R60.0 Localized edema
CPT/HCPCS: 93306